=== PATIENT | male | born 1980 | race Caucasian/White ===

== ENCOUNTER → 2017-02-25 | Outpatient (CLI) | payer OTHER ==
[~2017-02-25] MED LIST: /WARF2TA OR; /WARF5TA OR; BACT800T PO; COUM10TA OR; DEXI60CA2; DICY1CAP8 PO; ENOX40SY SC; GABA-283 PO; LEVA500T OR; MELO7.5S PO; MORP30TASA PO; NICO14DI3 TD; PERC5TAB12 PO; SERO200T PO; VITA100072 PO; ZANT1TAB PO; ZITHTAB OR
--- NOTE | 2017-02-25 11:18 | REP ---
HIDA SCAN WITH GALLBLADDER EJECTION FRACTION. Following the intravenous administration of 6.6 millicuries technetium 99m mebrofenin, multiple images of the right upper quadrant are performed every 5 minutes for a period of one hour. The gallbladder is visualized at 10 minutes postinjection. There is biliary to bowel transit at 20 minutes post injection with no scintigraphic evidence of cholecystitis. At the 1-hour nery, 8 ounces of Ensure Enlive is ingested and further imaging performed for 1 hours. Gallbladder activity is measured and the gallbladder ejection fraction calculated to be 64%, which is normal. IMPRESSION: Normal gallbladder ejection fraction. Signed by Harshil Cabral MD 02/26/2017 08:38 A
--- NOTE | 2017-02-25 15:26 | REP ---
Abdominal right upper quadrant ultrasound: Comparison is 12/02/2009. There is no cholelithiasis, gallbladder wall thickening or pericholecystic fluid. There is no intrahepatic or extrahepatic biliary duct dilatation, the common duct measures 3.0 mm in diameter. The hepatic parenchyma is homogeneous. There are no hepatic masses. Balloon The visualized portion of the pancreatic head is unremarkable. The pancreas body and tail are obscured by bowel gas. There is no right renal calculus, mass, cyst or hydronephrosis. Right kidney is normal size measuring 13.7 cm craniocaudad length. The visualized portion of the abdominal aorta is unremarkable. There is no free fluid in the abdominal right upper quadrant. Impression: Essentially negative abdominal right upper quadrant ultrasound. There is no interval change. Signed by Harshil Courtney MD 02/25/2017 08:32 A
== END ==
LOC: M RAD 07:45
PROVIDERS: ATTEND Physician Assistant Medical
DX: R10.9 Unspecified abdominal pain (principal)
CPT/HCPCS: 76705; J2805

== ENCOUNTER 2017-03-08 11:18 | Outpatient (CLI) | payer OTHER ==
[~2017-03-08] VITALS: Ht 177.8 cm; Wt 104.3 kg
[~2017-03-08 11:18] MED LIST changes: +NS 1,000 ML IV ONE
[2017-03-08] MEDS ORDERED: fentaNYL 100 MCG/2 ML INJECTION (J3010) As Ordered ONE (11:54)
[2017-03-08] MEDS ORDERED: LIDOCAINE 2% INJ 100 MG/5 ML SDV (FOR ANES.) As Ordered ONE (11:55)
[2017-03-08] MEDS ORDERED: PROPOFOL 200 MG/20 ML VIAL As Ordered ONE (11:55)
--- NOTE | 2017-03-08 12:15 | ROOR ---
Patient Name: Jose Enrique Macdonald Procedure Date: 03/08/2017 11:51 AM Date of : 1980 Age: 37 Room: [facility] Gender: Male Note Status: Finalized Procedure: Upper GI endoscopy Indications: Follow-up of Green's esophagus. History of low grade dysplasia, s/p HALO ablation x 4. --subsequent follow up EGD was visually suspicious for barretts, however biopsies were negative. This is a re eval. Providers: Vincent FERNANDEZ MD Referring MD: MILEY NEAL MD Requesting Provider: Medicines: Monitored Anesthesia Care Complications: No immediate complications. Procedure: Pre-Anesthesia Assessment: - The heart rate, respiratory rate, oxygen saturations, blood pressure, adequacy of pulmonary ventilation, and response to care were monitored throughout the procedure. The Endoscope was introduced through the mouth, and advanced to the second part of duodenum. The upper GI endoscopy was accomplished without difficulty. The patient tolerated the procedure well. Findings: Two tongues of salmon-colored mucosa were present from 39 to 40 cm. No other visible abnormalities were present. The maximum longitudinal extent of these esophageal mucosal changes was 1 cm in length. Biopsies were taken with a cold forceps for histology. The exam was otherwise without abnormality. Impression: - [place]-colored mucosa suspicious for short-segment Green's esophagus. Biopsied. - The examination was otherwise normal. Recommendation: - Telephone endoscopist for pathology results in 2 weeks. - repeat HALO/ablation procedure VS repeat scope only in 3 years--this will be determined based on todays biopsies. Call me in 2 weeks. - Use Dexilant (dexlansoprazole) 60 mg PO daily indefinitely. - Use Zantac (ranitidine) 150 mg PO at bedtime PRN. Vincent Fernandez MD Vincent FERNANDEZ MD 03/08/2017 12:15:12 PM This report has been signed electronically. Number of Addenda: 0 Note Initiated On: 03/08/2017 11:51 AM Estimated Blood Loss: Estimated blood loss: none.
[2017-03-08 12:34] VITALS: BP 126/62
== END 2017-03-08 13:40 ==
LOC: M OPP 11:18
PROVIDERS: ATTEND Internal Medicine Gastroenterology
DX: K22.70 Barrett's esophagus without dysplasia (principal); D68.52 Prothrombin gene mutation; M54.5 Low back pain; M54.6 Pain in thoracic spine; F41.9 Anxiety disorder, unspecified; F17.210 Nicotine dependence, cigarettes, uncomplicated; Z86.711 Personal history of pulmonary embolism; Z79.891 Long term (current) use of opiate analgesic; Z79.899 Other long term (current) drug therapy
CPT/HCPCS: 43239; 88305; J3010

== ENCOUNTER → 2020-12-11 | Outpatient (CLI) | payer OTHER ==
[~2020-12-11] MED LIST changes: -/WARF2TA OR; -/WARF5TA OR; +CELE1CAP4 PO; +COUM1TAB16 OR; +COUM1TAB17 OR; +DULO1CAP6 PO; -ENOX40SY SC; +LORA-674; +LOVE1INJ SC; -NS 1,000 ML IV ONE; +TRAZ-257 PO; +VARE05TA PO; +VITA100018 PO; -VITA100072 PO; +VITA50005; +ZANT150T15 PO; -ZANT1TAB PO
== END ==
LOC: M LABSMTC 09:19
PROVIDERS: ATTEND Anesthesiology
DX: Z01.818 Encounter for other preprocedural examination (principal); Z11.52 Encounter for screening for COVID-19

== ENCOUNTER 2020-12-16 10:15 | Day surgery (SDC) | payer OTHER ==
[~2020-12-16] VITALS: Ht 177.8 cm; Wt 113.6 kg
[~2020-12-16 10:15] MED LIST changes: +NS 1,000 ML IV ONE
[2020-12-16] MEDS ORDERED: propofoL 200 MG/20 ML VIAL As Ordered ONE ×3 (12:34→13:45)
[2020-12-16] MEDS ORDERED: LIDOCAINE 2% 100MG/5ML SDV (FOR ANES.) As Ordered ONE ×2 (12:34→13:16)
[2020-12-16] MEDS ORDERED: fentaNYL 100 MCG/2 ML INJECTION (J3010) As Ordered ONE (12:35)
--- NOTE | 2020-12-16 13:19 | ROOR ---
Patient Name: Jose Enrique Macdonald Procedure Date: 12/16/2020 12:54 PM Date of : 1980 Age: 40 Room: [facility] Gender: Male Note Status: Finalized Procedure: Upper GI endoscopy Indications: Surveillance procedure, Follow-up of previous ablation treatment of Green's esophagus Providers: Vincent Fernandez MD Referring MD: MILEY NEAL MD Requesting Provider: Medicines: Monitored Anesthesia Care Complications: No immediate complications. Procedure: Pre-Anesthesia Assessment: - The heart rate, respiratory rate, oxygen saturations, blood pressure, adequacy of pulmonary ventilation, and response to care were monitored throughout the procedure. The Endoscope was introduced through the mouth, and advanced to the second part of duodenum. The upper GI endoscopy was accomplished without difficulty. The patient tolerated the procedure well. Findings: The Z-line was variable and was found 38 cm from the incisors. Biopsies were taken with a cold forceps for histology. The examined esophagus was normal. Small Hiatal Hernia. The entire examined stomach was normal. The examined duodenum was normal. Impression: - Normal esophagus. - Z-line variable, 38 cm from the incisors. Biopsied. - Small Hiatal Hernia. - Normal stomach. - Normal examined duodenum. Recommendation: - Continue present medications. - Telephone endoscopist for pathology results in 2 weeks. Procedure Code(s): --- Professional --- 61789, Esophagogastroduodenoscopy, flexible, transoral; with biopsy, single or multiple Diagnosis Code(s): --- Professional --- K22.70, Green's esophagus without dysplasia Z09, Encounter for follow-up examination after completed treatment for conditions other than malignant neoplasm K22.8, Other specified diseases of esophagus CPT copyright 2019 [employer] [employer]. All rights reserved. The codes documented in this report are preliminary and upon solar energy technician review may be revised to meet current compliance requirements. Vincent Fernandez MD Vincent Fernandez MD 12/16/2020 1:19:23 PM Electronically signed by Vincent Fernandez MD Number of Addenda: 0 Note Initiated On: 12/16/2020 12:54 PM Estimated Blood Loss: Estimated blood loss: none.
[2020-12-16 13:45] VITALS: BP 139/84
== END 2020-12-16 13:49 | disposition home or self-care (01) ==
LOC: M OPP 10:15
PROVIDERS: ATTEND Internal Medicine Gastroenterology
DX: K22.8 Other specified diseases of esophagus (principal); K44.9 Diaphragmatic hernia without obstruction or gangrene; K22.70 Barrett's esophagus without dysplasia; Z09 Encounter for follow-up examination after completed treatment for conditions other than malignant neoplasm; K21.9 Gastro-esophageal reflux disease without esophagitis; Z79.899 Other long term (current) drug therapy; F17.210 Nicotine dependence, cigarettes, uncomplicated
CPT/HCPCS: 43239; 88305; J3010

== ENCOUNTER 2023-03-01 11:34 | Day surgery (SDC) | payer OTHER ==
[~2023-03-01] VITALS: Ht 177.8 cm; Wt 100.1 kg
[~2023-03-01 11:34] MED LIST changes: +B-12100010 PO; +ERGO500029 PO; -GABA-283 PO; +GABA-284 PO; +LIPI10TA PO; -VITA50005
[2023-03-01] MEDS ORDERED: fentaNYL 100 MCG/2 ML INJECTION As Ordered ONE (14:09)
[2023-03-01] MEDS ORDERED: propofoL 200 MG/20 ML VIAL As Ordered ONE ×2 (14:09→14:52)
[2023-03-01] MEDS ORDERED: LIDOCAINE 2% 100MG/5ML SDV (FOR ANES.) As Ordered ONE (15:07)
[2023-03-01 15:36] VITALS: BP 113/73; O2SAT 95
== END 2023-03-01 15:39 | disposition home or self-care (01) ==
LOC: M OPP 11:34
PROVIDERS: ATTEND Internal Medicine Gastroenterology
DX: K22.89 Other specified disease of esophagus (principal); K22.70 Barrett's esophagus without dysplasia; Z09 Encounter for follow-up examination after completed treatment for conditions other than malignant neoplasm; F17.200 Nicotine dependence, unspecified, uncomplicated; Z79.810 Long term (current) use of selective estrogen receptor modulators (SERMs); Z79.02 Long term (current) use of antithrombotics/antiplatelets
CPT/HCPCS: 43239; 88305; J3010